=== PATIENT | male | born 1995 | race Two or more races ===

== ENCOUNTER 2018-07-03 20:43 | Emergency (ER) | payer OTHER ==
[~2018-07-03] VITALS: Ht 165.1 cm; Wt 69.9 kg
[2018-07-03 20:57] VITALS: BP 126/89
--- NOTE | 2018-07-03 21:59 | NUR ---
report received from YOU [place].
--- NOTE | 2018-07-03 22:21 | NUR ---
pt given dc instructions and script, educated regarding dc rx for flexiril and naproxen. pt a&o, resps even and unlabored, amb to dc desk with steady gait, no complaint at dc.
== END 2018-07-03 22:21 | disposition home or self-care (01) ==
LOC: ED 21:58
DX: S39.012A Strain of muscle, fascia and tendon of lower back, initial encounter (principal); S29.012A Strain of muscle and tendon of back wall of thorax, initial encounter; G89.11 Acute pain due to trauma; F17.210 Nicotine dependence, cigarettes, uncomplicated; V49.09XA Driver injured in collision with other motor vehicles in nontraffic accident, initial encounter; Y93.89 Activity, other specified; Y92.89 Other specified places as the place of occurrence of the external cause; Y99.8 Other external cause status
CPT/HCPCS: 72072; 72110; 99283